=== PATIENT | female | born 1980 | race Caucasian/White ===

== ENCOUNTER 2017-09-01 16:38 | Outpatient (CLI) | payer OTHER | END 2017-09-01 20:50 | disposition home or self-care (01) | LOC: OBT 16:38 → L-D 16:39 → OBT 20:50 | DX: O09.522 Supervision of elderly multigravida, second trimester (principal); Z3A.27 27 weeks gestation of pregnancy | CPT/HCPCS: 76818 ==

== ENCOUNTER 2017-09-16 16:34 | Inpatient (IN) | payer OTHER ==
[2017-09-16] MEDS ORDERED: CARBOPROST 250 MCG INJ IM (17:00)
[2017-09-16] MEDS ORDERED: IBUPROFEN 600 MG TAB PO (17:00)
[2017-09-16] MEDS ORDERED: MISOPROSTOL 200 MCG TAB PR (17:00)
[2017-09-16] MEDS ORDERED: OXYTOCIN 30 UNITS/LR 500 ML IV ×2 (17:00→18:30)
[2017-09-16] MEDS ORDERED: BUTORPHANOL 2 MG INJ IV (17:00)
[2017-09-16] MEDS ORDERED: METHYLERGONOVINE 0.2 MG INJ IM (17:00)
[2017-09-16] MEDS ORDERED: LIDOCAINE 1% (MPF) 30 ML INJ INJ (17:00)
[2017-09-16] MEDS: LACTATED RINGER'S 1,000 ML IV (17:32)
[2017-09-16 18:32] LABS: ADD MAN DIFF? NO
[2017-09-16 18:36] LABS: BASOPHILS % 0.3 % (0.0-2.0); EOSINOPHILS % 0.4 % (0.0-7.0); HEMATOCRIT 35.3 % (37.0-47.0); HEMOGLOBIN 11.4 g/dl (12.0-16.0); MEAN CORPUSCULAR HEMOGLOBIN 26.5 pg (29.0-33.0); MEAN CORPUSCULAR HGB CONC 32.3 g/dl (32.0-37.0); MEAN CORPUSCULAR VOLUME 82.1 fl (82.0-101.0); MEAN PLATELET VOLUME 10.2 fl (7.4-10.4); MONOCYTE # 0.4 10^3/ul (0.3-0.9); MONOCYTES % 5.8 % (0.0-11.0); NEUTROPHIL # 5.8 10^3/ul (1.6-7.5); NEUTROPHILS % 79.1 % (39.0-77.0); PLATELET COUNT 286 10^3/UL (140-415); RED CELL DISTRIBUTION WIDTH 14.7 % (11.5-14.5)
[2017-09-16 18:36] LABS: WHITE BLOOD COUNT 7.4 10^3/ul (4.8-10.8)
[2017-09-16 18:56] LABS: INR 0.88; PT RATIO 0.9
[2017-09-16 18:57] LABS: PARTIAL THROMBOPLASTIN TIME 29.7 Sec (25.0-35.0)
[2017-09-16 19:26] LABS: HEPATITIS B SURFACE ANTIGEN NEGATIVE (NEGATIVE)
[2017-09-16] MEDS: OXYTOCIN 30 UNITS/LR 500 ML IV (20:33)
[2017-09-17] MEDS: LACTATED RINGER'S 1,000 ML IV ×3 (00:21→10:25)
[2017-09-17] MEDS ORDERED: FENTAnyl 2MCG/ML-ROPIV 0.2% 100 ML (10:25)
[2017-09-17] MEDS ORDERED: FENTAnyl 50 MCG/ML VIAL (10:25)
[2017-09-17] MEDS: OXYTOCIN 30 UNITS/LR 500 ML IV ×3 (12:59→20:18)
[2017-09-17 15:05] LABS: RAPID PLASMA REAGIN NONREACTIVE (NR)
[2017-09-17 15:14] LABS: AMPHETAMINE/METHAMPHETAMINE Negative (NEGATIVE); BARBITURATES Negative (NEGATIVE); BENZODIAZEPINES Negative (NEGATIVE); CANNABINOIDS Negative (NEGATIVE); COCAINE Negative (NEGATIVE); OPIATES Negative (NEGATIVE)
[2017-09-17] MEDS ORDERED: MISOPROSTOL 200 MCG TAB PR (17:00)
[2017-09-17] MEDS ORDERED: OXYTOCIN 30 UNITS/LR 500 ML IV (17:00)
[2017-09-17] MEDS ORDERED: METHYLERGONOVINE 0.2 MG INJ IM (17:00)
[2017-09-17] MEDS ORDERED: CARBOPROST 250 MCG INJ IM (17:00)
[2017-09-17] MEDS: LANOLIN 7 GM TUBE TOP (20:19)
[2017-09-17] MEDS: BENZOCAINE 20% 56 ML SPRAY TOP (20:19)
[2017-09-18] MEDS: IBUPROFEN 600 MG TAB PO ×4 (00:26→18:39)
[2017-09-18 08:58] LABS: ADD MAN DIFF? NO
[2017-09-18 09:11] LABS: BASOPHILS % 0.5 % (0.0-2.0); EOSINOPHILS # 0.1 10^3/ul (0.0-0.5); EOSINOPHILS % 1.6 % (0.0-7.0); LYMPHOCYTES # 1.8 10^3/ul (0.8-2.9); MEAN CORPUSCULAR HEMOGLOBIN 26.9 pg (29.0-33.0); MEAN CORPUSCULAR HGB CONC 32.4 g/dl (32.0-37.0); MEAN CORPUSCULAR VOLUME 83.1 fl (82.0-101.0); MEAN PLATELET VOLUME 10.3 fl (7.4-10.4); MONOCYTE # 0.5 10^3/ul (0.3-0.9); MONOCYTES % 5.6 % (0.0-11.0); NEUTROPHILS % 70.7 % (39.0-77.0); PLATELET COUNT 274 10^3/UL (140-415); RED BLOOD COUNT 4.09 10^6/ul (4.20-5.40); RED CELL DISTRIBUTION WIDTH 14.8 % (11.5-14.5)
[2017-09-18 09:11] LABS: WHITE BLOOD COUNT 8.5 10^3/ul (4.8-10.8)
[2017-09-19] MEDS: IBUPROFEN 600 MG TAB PO ×3 (00:06→11:31)
== END 2017-09-19 16:22 | disposition home or self-care (01) | DRG 775 ==
LOC: L-D 16:34 → PP1 09-17 15:45
PROC: 10E0XZZ Delivery of Products of Conception, External Approach (ICD-10-PCS; principal; 2017-09-16 16:00)
PROC: 3E033VJ Introduction of Other Hormone into Peripheral Vein, Percutaneous Approach (ICD-10-PCS; 2017-09-16 16:00)
DX: O48.0 Post-term pregnancy (principal); Z37.0 Single live birth; Z3A.41 41 weeks gestation of pregnancy
CPT/HCPCS: 62319; 80307; 85025; 85610; 85730; 86592; 86900; 86901; 87340